=== PATIENT | male | born 1980 | race Caucasian/White ===

== ENCOUNTER 2021-09-11 08:08 | Outpatient (CLI) | payer OTHER, SELFPAY ==
--- NOTE | ~2021-09-11 | MR_ITS ---
EXAMINATION: MR shoulder RT wo con DATE: 09/11/2021 08:56 INDICATION: Right shoulder pain with suspected rotator cuff disorder. TECHNIQUE: Magnetic resonance imaging (MRI) of the right shoulder was performed without intravenous c ontrast. Sequences included axial PD-weighted FS FSE, coronal oblique PD-weighted FS FSE, coronal obl ique T2-weighted FS FSE, sagittal PD-weighted FS FSE, and sagittal T1-weighted SE. COMPARISON: None. FINDINGS: Coracoacromial arch: The acromion undersurface is curved in morphology (type II). Small anterior subacromial spur at the a cromial attachment of the otherwise normal coracoacromial ligament. Mild to moderate acromioclavicula r osteoarthritis with small inferiorly directed osteophytes. Rotator cuff: Mild supraspinatus tendinopathy with partial-thickness tear extending 8 mm AP along the superior face t footplate. The anterior third of the tear appears to involve the articular surface and up to two th irds of the tendon thickness. The more posterior portion of the tear is less severe involving about o ne third of the tendon thickness and remains intrasubstance located near but not definitively involvi ng the articular surface of the tendon. Mild infraspinatus and subscapularis tendinopathy without dis crete tear. The teres minor tendon is normal. Normal rotator cuff muscle bulk and signal. Biceps tendon, glenoid labrum and glenohumeral cartilage: Long head of the biceps tendon is normal. Partial-thickness tear along the chondral labral junction a t the 10:00-11:00 position of the posterior superior glenoid labrum. Glenohumeral cartilage is normal . Fluid: Physiologic amount of fluid in the glenohumeral joint and biceps tendon sheath. No loose osteochondr al bodies. Small amount of fluid in the subacromial/subdeltoid bursa consistent with mild bursitis. Bones: Normal marrow signal with no edema, fracture or abnormal marrow replacing process. IMPRESSION: 1. Mild supraspinatus tendinopathy with small moderate severity articular sided tear along the superi or facet footplate. 2. Small tear at the posterior superior glenoid labrum. 2. Mild to moderate acromioclavicular osteoarthritis. 4. Mild subacromial/subdeltoid bursitis. Reviewed, dictated and finalized at location B. IMPRESSION: 1. Mild supraspinatus tendinopathy with small moderate severity articular sided tear along the superior facet footplate. 2. Small tear at the posterior superior glenoid labrum. 2. Mild to moderate acromioclavicular osteoarthritis. 4. Mild subacromial/subdeltoid bursitis.
== END 2021-09-11 08:09 | disposition home or self-care (01) ==
LOC: ANHIMG 08:09
PROVIDERS: Visit Provider Orthopaedic Surgery
DX: M19.011 Primary osteoarthritis, right shoulder (principal); M75.51 Bursitis of right shoulder
CPT/HCPCS: 73221

== ENCOUNTER 2021-09-21 10:19 | Outpatient (CLI) | payer OTHER, SELFPAY ==
--- NOTE | ~2021-09-21 | MR_ITS ---
EXAMINATION: MR shoulder LT wo con DATE: 09/21/2021 11:06 INDICATION: Chronic left shoulder pain TECHNIQUE: Magnetic resonance imaging (MRI) of the left shoulder was performed without intravenous co ntrast. Sequences included axial PD-weighted FS FSE, coronal oblique PD-weighted FS FSE and T2-weight ed FS FSE, and sagittal oblique T2-weighted FS FSE and T1-weighted FSE. COMPARISON: Right shoulder MR 09/11/2021 FINDINGS: Coracoacromial arch: Type II acromion with lateral downsloping and tip enthesopathy. Minimal inferior AC joint osteophytos is. Rotator cuff: 8 mm full-thickness tear of the distal supraspinatus, with 13.9 mm retraction. Minimal intrasubstance tearing of the supraspinatus. Atrophy of the supraspinous and infraspinatus muscle bellies. Subscapu marquise and teres minor are intact. Biceps tendon and glenoid labrum: Long and short heads of the biceps are intact. Mild glenohumeral narrowing. Posterior superior glenoi d labral tear. Fluid: Subacromial subdeltoid fluid. Bones/cartilage: Cartilaginous thinning along humeral head and glenoid. IMPRESSION: 1. Full-thickness supraspinatus tear. 2. Posterosuperior glenoid labral tear. 3. Subacromial subdeltoid bursitis. Reviewed, dictated and finalized at location K.
== END 2021-09-21 10:20 | disposition home or self-care (01) ==
PROVIDERS: PCP Family Medicine; Visit Provider Orthopaedic Surgery
DX: M25.512 Pain in left shoulder (principal); G89.29 Other chronic pain; M75.122 Complete rotator cuff tear or rupture of left shoulder, not specified as traumatic; S43.432A Superior glenoid labrum lesion of left shoulder, initial encounter; M75.52 Bursitis of left shoulder
CPT/HCPCS: 73221

== ENCOUNTER 2023-05-18 12:30 | Outpatient (RCR) | payer OTHER, SELFPAY ==
--- NOTE | 2023-03-24 13:45 | PTOPEVAL1 ---
Assessment and note entered by Jerry Denise, PT Evaluation Information Assessment Status Evaluation Diagnosis Right rotator cuff repair, R shoulder weakness, Loss of functional shoulder Onset 02/16/23 Subjective Information Reports that he has been using Tylenol and Cannibis for pain relief. Mostly controlled. He has not been sleeping well secondary to discomfort . Having trouble getting to sleep. Cannot tolerate pressure on his arm at this time. 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 He is ambidexterous and is able to use both hands for self care but has history left rotator cuff repair. Reported Pain Level Pain Score 4: Self Report Assessment PT Clinical Summary Patient presents with typical signs ans symptoms of post operative rotator cuff repair. Demonstrates ROM deficits and weakness limiting functional ability at this time. Will benefit from skilled therapy within protocol to ensure functional return and objective gains. Plan of Care Interventions Electrical Stimulation,Hot Pack/Cold Pack,Manual Therapy,Neuro Re-education,Therapeutic Activities, Therapeutic Exercise PT Services Indicated Yes Treatment Frequency and 2x/week for 6 weeks Duration These treatments will address the objective and functional deficits as defined above. The patient will be advanced safely and appropriately in order for the patient to progress towards his/her prior level of function. Additional exercises will be introduced and as well as a comprehensive home exercise program upon discharge, if needed, ?to ensure carryover of functional gains achieved in the clinic. This treatment plan has been reviewed and agreement upon by the patient.
--- NOTE | 2023-04-14 13:09 | PCPTNOTE ---
Patient canceled secondary to ill.
--- NOTE | 2023-04-18 14:14 | PCPTNOTE ---
pt was 15 min late for appt; he apologized for being late;
--- NOTE | 2023-04-20 16:03 | PTOPPROG ---
Assessment and note entered by Jerry Denise, PT Evaluation Information Assessment Status Progress Diagnosis Right rotator cuff repair, R shoulder weakness, Loss of functional shoulder Onset 02/16/23 Subjective Information Reports a slight increase in pain today. He blames of weather and activity. Overall seeing improvement. Feels he is still struggling with pain when sitting still as he is still getting throbbing. Also uncomfortable with sleeping both in recliner and bed. Feels his motion is greatly improved but still weak. Assessment PT Clinical Summary Patient has seen significant progress in shoulder ROM but lacking significant stability and strength in shoulder girdle. Will benefit form continuation of therapy to improve shoulder stability, lifting ability, and ADL performance for long-term functional activity improvement. Plan of Care Interventions Electrical Stimulation,Hot Pack/Cold Pack,Manual Therapy,Neuro Re-education,Therapeutic Activities, Therapeutic Exercise PT Services Indicated Yes Treatment Frequency and 2x/week for 4 weeks Duration These treatments will address the objective and functional deficits as defined above. The patient will be advanced safely and appropriately in order for the patient to progress towards his/her prior level of function. Additional exercises will be introduced and as well as a comprehensive home exercise program upon discharge, if needed, ?to ensure carryover of functional gains achieved in the clinic. This treatment plan has been reviewed and agreement upon by the patient.
--- NOTE | 2023-04-20 16:03 | OPREHPOC ---
Outpatient Therapy Plan of Care This is a Multidisciplinary Plan of Care that may contain components documented by all disciplines (PT, OT, and ST.) PT Problem 1 PT Problem #1 Knowledge Deficit PT Goal 1 Goal Indepenent with shoulder ROM HEP Target Visit 4 Progress Met PT Problem 2 PT Problem #2 Pain PT Goal 1 Goal Report no pain greater that 1/10 when lying supine to allow for improved sleeping Target Visit 4 Progress Partially Met Comment Improved but still painful elevation PT Problem 3 PT Problem #3 Impaired Range of Motion PT Goal 1 Goal Improve R shoulder flexion Passive ROM to 170 degrees to allow for full functional capsular mobilization Target Visit 10 Progress Partially Met Comment Significant progress made PT Goal 2 Goal Achieve 80 degrees R shoulder External rotation to allow for improved hygiene and self care Target Visit 10 Progress Partially Met Comment Significant porgress but not yet met PT Problem 4 PT Problem #4 Impaired Strength PT Goal 1 Goal Improve R shoulder Ext Rotation strength to 4+/5 to improve stability and self care as allowed per protocol Target Visit 12 Progress Partially Met Comment Strengthening initiated. Significant weakness still noted and will be emphasized movign forward per protocol PT Goal 2 Goal Demonstrate ability to lift 5# x 10 overhead for functional reach return as allowed per protocol Target Visit 12 Progress Partially Met Comment No overhead lifting capable at this point. shelter goal continued. PT Problem 5 PT Problem #5 Impaired Functional Mobil PT Goal 1 Goal Demonstrate 75% improvement in DASH score indicating significant improvement in functiona and reduced disability index Target Visit 12 Progress Partially Met
--- NOTE | 2023-04-28 11:50 | PCPTNOTE ---
pt called and canceled due to illness.
--- NOTE | 2023-06-08 10:42 | PTOPDC ---
Assessment and note entered by Clarissa Ridley, PT Discharge Information Assessment Status Discharge - Pt Not Present Diagnosis Right rotator cuff repair, R shoulder weakness, Loss of functional shoulder Onset 02/16/23 Assessment PT Clinical Summary PHYSICAL THERAPY DISCHARGE Hunter has received 13 PT sessions, from Mar 24 to May 18, then stopped attending therapy. He will be discharged at this time; the goals were not addressed. Plan of Care PT Services Indicated No
== END 2023-06-08 11:09 | disposition home or self-care (01) ==
LOC: ANHPT 12:30
PROVIDERS: PCP Family Medicine; Visit Provider Orthopaedic Surgery Sports Medicine
DX: M75.121 Complete rotator cuff tear or rupture of right shoulder, not specified as traumatic (principal)
CPT/HCPCS: 97014; 97110; 97140; 97161; 97530; G0283